=== PATIENT | female | born 1945 | race Caucasian/White ===

== ENCOUNTER → 2017-03-01 | Outpatient (CLI) | payer MEDICARE, OTHER ==
[~2017-03-01] MED LIST: ALBUTEROL17 GM INH; ALENDRONATE SOD70 MG PO; AMLODIPINE BESY10 MG PO; ASPIRIN EC81 M1 PO; ASPIRIN PO; ATORVASTATIN CA10 MG PO; BACLOFEN10 MG PO; CALCIUM 500 +1 EAC1 PO; CETERIZINE PO; CETIRIZINE HCL10 MG PO; CLOPIDOGREL75 MG PO; COREG6.25 MG PO; EFFEXOR XR150 MG PO; EFFEXOR-XR75 MG PO; EFFEXOR37.5 MG PO; ENDOCET 5-3251 EACH PO; FOSAMAX70 MG PO; GABAPENTIN400 M2 PO; GLIPIZIDE2.5 MG/BO1 PO; GLIPIZIDE2.5 MG/BOT PO; GLUCOTROL PO; INDERAL40 MG PO; LIORESAL10 MG PO; LIPITOR20 MG PO; LISINOPRIL10 MG PO; LYRICA50 MG PO; MELATIN3 MG PO; MONTELUKAST SOD10 MG PO; MYSOLINE50 MG PO; NEURONTIN PO; NEURONTIN800 MG PO; OS-CAL 500500 MG PO; OXYCODONE-ACET1 EACH PO; PAMELOR; PERCOCET5/325 PO; PHOSLO667 MG PO; PREDNISONE10 MG PO; PROPRANOLOL HCL40 M1 PO; PROPRANOLOL HCL40 MG PO; ST. JOSEPH ASPI81 M2 PO; VICODIN 5/500 T1 TAB; VOLTAREN75 MG PO; ZOLOFT; ZYRTEC10 M1 PO
--- NOTE | ~2017-03-01 | CT57 ---
[facility] A Service of [facility] & [facility] RADIOLOGY TEXT RESULTS PATIENT: MEENA GUZMAN LOCATION: [facility] : 41 UNIT #: [id number] AGE: [address]: Juliette Herrera SEX: F ORDER DR: [id number] [facility] [address] [place], [place] [address] [id number] O MR#: [id number] Acc #: [id number] NAME: MEENA GUZMAN : 1945 SEX: F STUDY DATE/TIME: 03/02/2017 UNIT: [facility] ROOM: STUDY DESCRIPTION: CT Chest Wo Cont Attending Physician: Juliette Herrera A.P.R.N. Referring Physician: Juliette Herrera A.P.R.N. Ordering Physician: Juliette Herrera A.P.R.N. Primary Care Physician: Saira Tompkins Aprn MEDICAL IMAGING REPORT This report is preliminary unless electronic signature is present EXAM CT chest without contrast 03/01/2017 1400 hours. HISTORY 71-year-old woman with history of hypertension, diabetes, COPD and kidney disease with complaint of shortness of air for [address] abdomen 11/09/2015 and chest x-ray 11/07/2016. No prior chest CT. TECHNIQUE A routine helical noncontrasted chest CT images were obtained from the thoracic inlet through the adrenal glands. The patient then underwent high-resolution protocol study with 1.5-mm thick images at 10-mm intervals at full inspiration in the supine position. Additional similar high-resolution expiratory phase images were obtained in the supine position at the arch, joao and bases. The patient could not tolerate prone positioning and, therefore, the prone images through the lung bases were not performed. Total exam DLP 409 mGy-cm. This CT exam was performed with one or more of the following radiation dose reduction techniques: automatic exposure control, adjustment of mA and/or kV according to patient size, and iterative reconstruction. FINDINGS The routine chest CT images demonstrate no thyroid mass or supraclavicular adenopathy. There is a skin lesion in the medial left anterior chest wall measuring 1.2 cm, likely a sebaceous cyst. The aorta is normal in caliber. There are very coarse diffuse coronary calcifications. Cardiac chambers, pericardium and esophagus are normal. There is no adenopathy. [facility]. [facility] A Service of [facility] RADIOLOGY TEXT RESULTS PATIENT: MEENA GUZMAN LOCATION: [facility] : 41 UNIT #: [id number] AGE: [address]: Juliette Herrera SEX: F ORDER DR: The routine lung window images demonstrate no mass or acute infiltrate. High-resolution exam demonstrates mild centrilobular emphysema with no significant blebs or bullae. There is no evidence of underlying interstitial lung disease or bronchiectasis. Expiratory phase images demonstrate no significant air trapping. IMPRESSION Mild emphysematous change without significant blebs or bullae. The lungs are clear. There is no evidence of interstitial lung disease, mass or infiltrate. No effusions. Dictated by... Meena Hughes M.D. THIS IS AN ELECTRONICALLY VERIFIED REPORT Meena Hughes M.D. at 03/05/2017 9:07 AM Nikole TD: 03/02/2017 17:01 JOB #: [id number] MEDICAL IMAGING REPORT Page 1 of 1 COPY
== END | disposition home or self-care (01) ==
LOC: CRC 12:39
DX: J43.9 Emphysema, unspecified (principal); I10 Essential (primary) hypertension; E11.9 Type 2 diabetes mellitus without complications; J44.9 Chronic obstructive pulmonary disease, unspecified
CPT/HCPCS: 71250; 94060; 94726; 94729